=== PATIENT | female | born 1985 | race African-American/Black ===

== ENCOUNTER 2017-07-23 12:43 | Emergency (ER) | payer SELFPAY ==
[2017-07-23 12:53] VITALS: BP 166/98; BMI 52.8
--- NOTE | 2017-07-23 13:03 | DR.TOOTHHP ---
HPI - Time Seen Time seen: 13:20 - Primary Care Physician Primary Care Physician: NFD - Complaints Chief Complaint Doctors Comments: Patient admits to back pain with out history of trauma. Denies sudden moves. Dental pain for three days. Chief Complaint:: PT C/O TOOTHACHE AND SWELLING TO THE LEFT SIDE OF HER FACE AND A STABBING BACK PAIN". Self Treatment fo Chief Complaint: MOTRIN, PCN - Source History Provided: Patient - Mode of Arrival Mode of Arrival: Ambulatory - Timing Onset of Chief Complaint: 07/15/17 PMH - PMH Past Medical History: No Past Surgical History: Yes Past Surgical History Comment: TUBAL - Family History History of Family Medical Conditions: No - Social History Does patient currently use any type of tobacco product: No Have you used tobacco products in the last 12 months: No Type of Tobacco Use: None Does any household member use tobacco: No Alcohol Use: None Do you use any recreational Drugs:: No Lives With: Family Lives Where: Home - infectious screening In the last 2 months have you had wt loss of >10#?: NO Have you had fever, night sweats or hemotysis?: No Have you traveled outside the country in the last 6 months?: No Isolation: Standard ROS - Review of Systems Eyes: No Symptoms Reported ENTM: No Symptoms Reported Respiratoy: No Symptoms Reported Cardiovascular: No Symptoms Reported Gastrointestinal/Abdominal: No Symptoms Reported Genitourinary: No Symptoms Reported Neurological: No Symptoms Reported Musculoskeletal: No Symptoms Reported Integumentary: No Symptoms Reported Hematologic/Lymphatic: No Symptoms Reported Psychiatric: No Symptoms Reported All Other Systems: Reviewed and Negative PE - Vital Signs Vitals: Temperature 98.5 F Pulse Rate 78 Respiratory Rate 22 Blood Pressure 166/98 O2 Sat by Pulse Oximetry 95 - General Limitations: No Limitations General Appearance: Alert, Other (left cheek swollen) - Head Head Exam: Normal Inspection, Atraumatic - Eyes Eye exam: Normal Appearance, PERRL, EOMI - ENT ENT Exam: Normal Exam (#18,19) External Ear Exam: Normal External Inspection TM/Canal Exam: Bilateral Normal Nose Exam: Normal Nose Exam Mouth Exam: Normal Inspection Teeth Exam: Normal Inspection Throat Exam: Normal Inspection - Neck Neck Exam: Normal Inspection - Chest Chest Inspection: Normal Inspection - Respiratory Respiratory Exam: Normal Lung Sounds Bilat Respiratory Exam: Bilateral Clear to Auscultation - Cardiovascular Cardiovascular Exam: Regular Rate, Normal Rhythm - Abdominal Exam Abdominal Exam: Normal Inspection, Normal Bowel Sounds Abdominal Tenderness: negative: RUQ, RLQ, LUQ, LLQ, Epigastrium, Suprapubic, Diffuse, Mild, Moderate, Severe, Other - Extremities Extremities Exam: Normal Inspection, Full ROM - Back Back Exam: Normal Inspection, Full ROM - Neurologic Neurological Exam: Alert, Oriented X3, CN II-XII Intact - Psychiatric Psychiatric Exam: Normal Affect - Skin Skin Exam: Warm, Dry, Intact - Diagnosis Discharge Problem: Abscess, dental - Discharge Plan Condition: Stable - Follow ups/Referrals Follow ups/Referrals: NFD,None [Primary Care Provider] - 3 days - Instructions
[2017-07-23] MEDS ORDERED: TORADOL 60 MG VIAL IM ONE (13:25)
[2017-07-23] MEDS ORDERED: TORADOL 60 MG VIAL ONE ×2 (13:27→13:30)
== END 2017-07-23 13:41 | disposition home or self-care (01) ==
LOC: ER 12:55
DX: K04.7 Periapical abscess without sinus (principal)
CPT/HCPCS: 96372; 99282; J1885

== ENCOUNTER 2017-12-09 23:33 | Emergency (ER) | payer OTHER ==
[2017-12-09 23:39] VITALS: BMI 51.0
--- NOTE | 2017-12-10 00:04 | DR.GENAD ---
HPI - PCP Primary Care Physician: NFD - HPI Comment HPI Comment: Pt c/o generalized body pain going on 'for months', comes and goes. Increased pt left side of abd more recently. No fevers, no hx trauma - Complaint/Symptoms Chief Complaint:: "PAIN THROUGHOUT MY BODY AND SENSITIVE TO TOUCH ON LEFT SIDE. ". DENIES ANY VOMITING OR DIARRHEA. - Nurses notes reviewed Nurses Notes Review: Yes - Source History Provided: Patient - Mode of Arrival Mode of Arrival: Ambulatory - Timing Onset of Chief Complaint: 12/09/17 Came on: Gradually - Duration Duration: Since Onset PMH - PMH Past Medical History: No (pt denies sig contribPMH) Past Surgical History: Yes Surgical History: - Family History History of Family Medical Conditions: No - Social History Does patient currently use any type of tobacco product: No Have you used tobacco products in the last 12 months: No Type of Tobacco Use: Cigarettes Alcohol Use: None Do you use any recreational Drugs:: No Lives With: Family Lives Where: Home - infectious screening Have you traveled outside the country in the last 6 months?: No Isolation: Standard ROS - Review of Systems Constitutional: See HPI, Malaise, Other ('all over' body pain) Eyes: No Symptoms Reported ENTM: No Symptoms Reported Respiratoy: No Symptoms Reported Cardiovascular: No Symptoms Reported Gastrointestinal/Abdominal: Abdominal Pain Genitourinary: No Symptoms Reported Neurological: No Symptoms Reported Integumentary: No Symptoms Reported Hematologic/Lymphatic: No Symptoms Reported Endocrine: No Symptoms Reported Psychiatric: No Symptoms Reported All Other Systems: Reviewed and Negative PE - Vital Signs Vitals: Temperature 97.3 F Pulse Rate [Left] 89 Pulse Rate 99 Respiratory Rate 16 Blood Pressure [Left Arm] 139/87 Blood Pressure 130/78 O2 Sat by Pulse Oximetry 97 - General Limitations: No Limitations General Appearance: Alert, In No Apparent Distress - Head Head Exam: Normal Inspection - Eyes Eye exam: Normal Appearance - ENT ENT Exam: Normal Exam, Normal Oropharynx Throat Exam: Normal Inspection - Neck Neck Exam: Normal Inspection, Full ROM, Trachea Midline - Chest Chest Inspection: Normal Inspection, Symmetric Chest Wall Rise - Respiratory Respiratory Exam: Normal Lung Sounds Bilat Respiratory Exam: Bilateral Clear to Auscultation - Cardiovascular Cardiovascular Exam: Regular Rate, Normal Rhythm, Normal Heart Sounds - Abdominal Exam Abdominal Exam: Normal Inspection, Normal Bowel Sounds, Soft, Tenderness. negative: Guarding, Rebound, Rigidity Abdominal Tenderness: LLQ - Extremities Extremities Exam: Normal Inspection, Full ROM - Neurologic Neurological Exam: Alert, Oriented X3 - Psychiatric Psychiatric Exam: Normal Affect, Normal Mood - Skin Skin Exam: Warm, Dry, Intact ROR - Labs Reviewed Laboratory Results Reviewed?: Yes (ESR 18, labs reviewed w/pt) Result Diagrams: 12/10/17 00:41 03 00:41 Laboratory: WBC 4.8 X10^3/uL (3.6-10.0) 12/10/17 00:41 RBC 4.56 X10^6/uL (3.5-5.4) 12/10/17 00:41 Hgb 12.8 g/dL (12.0-16.0) 12/10/17 00:41 Hct 38.1 % (36.0-47.0) 12/10/17 00:41 MCV 83.5 fL (80.0-100.0) 12/10/17 00:41 MCH 27.9 pg (27.0-34.0) 12/10/17 00:41 MCHC 33.5 g/dL (33.0-35.0) 12/10/17 00:41 RDW 14.8 % (11.6-16.5) 12/10/17 00:41 Plt Count 224 X10^3/uL (150.0-450.0) 12/10/17 00:41 MPV 9.9 fL (7.4-11.0) 12/10/17 00:41 Neut % (Auto) 35.9 % (42.0-75.0) L 12/10/17 00:41 Lymph % (Auto) 47.2 % (21.0-51.0) 12/10/17 00:41 [place] % (Auto) 12.3 % (0.0-13.0) 12/10/17 00:41 Eos % (Auto) 4.0 % (0.9-2.9) H 12/10/17 00:41 Baso % (Auto) 0.6 % (0.2-1.0) 12/10/17 00:41 Neut # (Auto) 1.7 x10^3/uL (2.2-4.8) L 12/10/17 00:41 Lymph # (Auto) 2.3 X10^3/uL (1.3-2.9) 12/10/17 00:41 [place] # (Auto) 0.6 x10^3/uL (0.3-0.8) 12/10/17 00:41 Eos # (Auto) 0.2 x10^3/uL (0.0-0.2) 12/10/17 00:41 Baso # (Auto) 0.0 X10^3/uL (0.0-0.1) 12/10/17 00:41 Absolute Nucleated RBC 0.1 /100WBC 12/10/17 00:41 ESR 18 MM/HOUR (0-20) 12/10/17 00:41 Sodium 141 mmol/L (136-145) 12/10/17 00:41 Corrected Sodium TNP 12/10/17 00:41 Potassium 3.9 mmol/L (3.5-5.1) 12/10/17 00:41 Chloride 107 mmol/L (98-107) 12/10/17 00:41 Carbon Dioxide 25.2 mmol/L (21-32) 12/10/17 00:41 BUN 10 mg/dL (7-18) 12/10/17 00:41 Creatinine 0.84 mg/dL (0.55-1.02) 12/10/17 00:41 Est GFR (MDRD) Af Amer > 60 (>60) 12/10/17 00:41 Est GFR (MDRD) Non-Af > 60 (>60) 12/10/17 00:41 Glucose 108 mg/dL (65-99) H 12/10/17 00:41 Calcium 8.2 mg/dL (8.5-10.1) L 12/10/17 00:41 Corrected Calcium TNP 12/10/17 00:41 Total Bilirubin 0.30 mg/dL (0.2-1.0) 12/10/17 00:41 AST 28 Units/L (15-37) 12/10/17 00:41 ALT 42 Units/L (12-78) 12/10/17 00:41 Alkaline Phosphatase 53 Units/L (46-116) 12/10/17 00:41 Total Protein 8.4 g/dL (6.4-8.2) H 12/10/17 00:41 Albumin 3.5 g/dL (3.4-5.0) 12/10/17 00:41 Globulin 4.9 g/dL (2.5-4.5) H 12/10/17 00:41 Albumin/Globulin Ratio 0.7 Ratio (1.1-2.1) L 12/10/17 00:41 Amylase 84 Units/L (25-115) 12/10/17 00:41 Lipase 142 Units/L (73-393) 12/10/17 00:41 Specimen Type Clean catch urine 12/10/17 00:24 Urine Color Yellow (YELLOW) 12/10/17 00:24 Urine Appearance Clear (CLEAR) 12/10/17 00:24 Urine pH 5.0 (5.0 - 8.0) 12/10/17 00:24 Ur Specific Grandy 1.030 (1.000-1.030) 12/10/17 00:24 Urine Protein 2+ (NEGATIVE) 12/10/17 00:24 Urine Glucose (UA) Negative (NEGATIVE) 12/10/17 00:24 Urine Ketones 1+ (NEGATIVE) 12/10/17 00:24 Urine Occult Blood 4+ (NEGATIVE) 12/10/17 00:24 Urine Nitrite Negative (NEGATIVE) 12/10/17 00:24 Urine Bilirubin Negative (NEGATIVE) 12/10/17 00:24 Urine Urobilinogen 1+ (NORMAL) 12/10/17 00:24 Ur Leukocyte Esterase 1+ (NEGATIVE) 12/10/17 00:24 Urine RBC 10-20 /HPF (NONE SEEN) 12/10/17 00:24 Urine WBC 1-4 /HPF (NONE SEEN) 12/10/17 00:24 Ur Squamous Epith Cells Many /HPF (NEGATIVE) 12/10/17 00:24 Urine Bacteria Trace /HPF (NEGATIVE) 12/10/17 00:24 Urine Mucus Moderate /HPF (NEGATIVE) 12/10/17 00:24 Ur Culture Indicated? No/not indicated 12/10/17 00:24 - XRAY XRAY Interpreted by: Radiologist XRAY Findings: AAS with constipation - Diagnosis Discharge Problem: Generalized pain Constipation Qualifiers: Constipation type: unspecified constipation type Qualified Code(s): K59.00 - Constipation, unspecified - Discharge Plan Disposition: HOME, SELF-CARE Condition: Stable Prescriptions: Ketorolac Tromethamine [Toradol Tab] 10 mg PO Q8H PRN #12 tab PRN Reason: Pain - Follow ups/Referrals Follow ups/Referrals: NFD,None [Primary Care Provider] - 3 days - Instructions Additional Notes - Additional Notes Additional Notes: extended d/w pt re: labs and Xray findings. Will give mag citrate x 1 bottle to pt w/inst, asked pt to f/u PCP re: autoimmune and other disorders better investigated by PCP.
[2017-12-10 00:39] LABS: BILIRUBIN,URINE NEGATIVE (NEGATIVE); BLOOD/HEMOGLOBIN,URINE 4+ (NEGATIVE); GLUCOSE, URINE NEGATIVE (NEGATIVE); KETONES,URINE 1+ (NEGATIVE); LEUKOCYTE ESTERASE ,URINE 1+ (NEGATIVE); NITRITES,URINE NEGATIVE (NEGATIVE); PROTEIN,URINE 2+ (NEGATIVE); UROBILINOGEN,URINE 1+ (NORMAL)
[2017-12-10 00:48] LABS: APPEARANCE,URINE CLEAR (CLEAR); BACTERIA,URINE TRACE /HPF (NEGATIVE); COLOR,URINE YELLOW (YELLOW); MUCUS,URINE MODERATE /HPF (NEGATIVE); SQUAMOUS EPITHELIAL CELL,UR MANY /HPF (NEGATIVE)
--- NOTE | 2017-12-10 00:55 | RAD ---
Acute abdominal series, four views Indication: Left-sided abdominal pain Comparison: None Findings: The heart is normal in size. No focal consolidation, significant effusion or pneumothorax i s identified. Large stool burden is present throughout the colon. The visualized bowel gas pattern is otherwise non obstructive. No free air or pneumatosis is identified. No pathologic calcifications are seen. Imaged osseous structures are intact. Impression: No acute cardiopulmonary abnormality. Findings suggestive for constipation. Otherwise, no acute abdominal abnormality. Reported By:
[2017-12-10 01:00] LABS: BASOPHILS % (AUTO) 0.6 % (0.2-1.0); EOSINOPHILS # (AUTO) 0.2 x10^3/uL (0.0-0.2); HEMATOCRIT 38.1 % (36.0-47.0); HEMOGLOBIN 12.8 g/dL (12.0-16.0); LYMPHOCYTES # (AUTO) 2.3 X10^3/uL (1.3-2.9); LYMPHOCYTES % (AUTO) 47.2 % (21.0-51.0); MEAN CORPUSCULAR HEMOGLOBIN 27.9 pg (27.0-34.0); MEAN CORPUSCULAR HGB CONC 33.5 g/dL (33.0-35.0); MEAN CORPUSCULAR VOLUME 83.5 fL (80.0-100.0); MEAN PLATELET VOLUME 9.9 fL (7.4-11.0); MONOCYTES # (AUTO) 0.6 x10^3/uL (0.3-0.8); MONOCYTES % (AUTO) 12.3 % (0.0-13.0); NEUTROPHILS # (AUTO) 1.7 x10^3/uL (2.2-4.8); NEUTROPHILS % (AUTO) 35.9 % (42.0-75.0); PLATELET COUNT 224 X10^3/uL (150.0-450.0); RED BLOOD COUNT 4.56 X10^6/uL (3.5-5.4); RED CELL DISTRIBUTION WIDTH 14.8 % (11.6-16.5); WHITE BLOOD COUNT 4.8 X10^3/uL (3.6-10.0)
[2017-12-10] MEDS ORDERED: TORADOL 30 MG VIAL IM ONE (01:39)
[2017-12-10 01:43] LABS: ERYTHROCYTE SEDIMENTATION RATE 18 MM/HOUR (0-20)
[2017-12-10 01:50] LABS: ALANINE AMINOTRANSFERASE 42 Units/L (12-78); ALBUMIN 3.5 g/dL (3.4-5.0); ALKALINE PHOSPHATASE 53 Units/L (46-116); AMYLASE 84 Units/L (25-115); ASPARTATE AMINO TRANSFERASE 28 Units/L (15-37); BLOOD UREA NITROGEN 10 mg/dL (7-18); CALCIUM 8.2 mg/dL (8.5-10.1); CARBON DIOXIDE 25.2 mmol/L (21-32); CHLORIDE 107 mmol/L (98-107); CREATININE 0.84 mg/dL (0.55-1.02); LIPASE 142 Units/L (73-393); SODIUM 141 mmol/L (136-145); TOTAL PROTEIN 8.4 g/dL (6.4-8.2); eGFR BLACK RACES > 60 (>60); eGFR NON BLACK RACES > 60 (>60)
[2017-12-10] MEDS ORDERED: TORADOL 60 MG VIAL ONE (01:57)
[2017-12-10 02:03] VITALS: BP 139/87
[2017-12-10] MEDS ORDERED: CITROMA PO ONE (02:26)
[2017-12-10] MEDS ORDERED: CITROMA ONE (02:27)
== END 2017-12-10 02:29 | disposition home or self-care (01) ==
LOC: ER 23:33
DX: K59.09 Other constipation (principal); R52 Pain, unspecified
CPT/HCPCS: 36415; 74022; 80053; 81001; 82150; 83690; 85025; 85652; 96372; 99282; 99283; A4216; J1885

== ENCOUNTER 2017-12-31 08:48 | Emergency (ER) | payer OTHER ==
[2017-12-31 08:53] VITALS: BP 138/79; BMI 50.6
--- NOTE | 2017-12-31 09:02 | DR.TOOTHHP ---
HPI - Time Seen Time seen: 09:00 - Primary Care Physician Primary Care Physician: PITO - HPI Comment HPI Comment: WORSE THIS AM. RIGHT JAW SWOLLEN AND RT EAR PAIN WELL. HAD FEVER AT HOME. - Complaints Chief Complaint Doctors Comments: TOOTHACHE, RT EARACHE AND HEADACHE TIMES 3 DAYS. Chief Complaint:: PATIENT STATED THAT SHE IS HAVING A TOOTHACHE SINCE SUNDAY ON THE RIGHT SIDE TOP AND BOTTOM AND EAR HURT. SHE IS ALSO C/O OF A HEADACHE SINCE SUNDAY. - Reviewed Nurses Notes Reviewed: Yes - Source History Provided: Patient - Mode of Arrival Mode of Arrival: Ambulatory - Timing Onset of Chief Complaint: 12/28/17 - Severity Pain Severity: Moderate - Location Location:: Right, Lower, Tooth, Gums - Context Onset:: Spontaneous, Previous Caries History Of: None - Modifying Factors Worsens:: Chewing Improves:: Analagesics havn't helped - Associated Signs and Symptoms Associated signs and symptoms: Earache, Other (HEADACHE) PMH - PMH Past Medical History: No Past Surgical History: Yes Surgical History: - Family History History of Family Medical Conditions: No - Social History Does patient currently use any type of tobacco product: No Have you used tobacco products in the last 12 months: No Type of Tobacco Use: None Does any household member use tobacco: No Alcohol Use: None Do you use any recreational Drugs:: No Lives With: Family Lives Where: Home - infectious screening In the last 2 months have you had wt loss of >10#?: NO Have you had fever, night sweats or hemotysis?: No Have you traveled outside the country in the last 6 months?: No Isolation: Standard ROS - Review of Systems ENTM: Ear Pain. negative: Nose Pain, Nose Congestion, Loose Teeth (RIGHT LOWER MOLAR PAINFULL), Throat Pain Respiratoy: No Symptoms Reported Cardiovascular: No Symptoms Reported Gastrointestinal/Abdominal: No Symptoms Reported Genitourinary: No Symptoms Reported Neurological: No Symptoms Reported Musculoskeletal: No Symptoms Reported Integumentary: No Symptoms Reported Hematologic/Lymphatic: No Symptoms Reported Endocrine: No Symptoms Reported All Other Systems: Reviewed and Negative PE - Vital Signs Vitals: Temperature 97.5 F Pulse Rate 91 Respiratory Rate 20 Blood Pressure [Left Arm] 139/87 Blood Pressure 138/79 O2 Sat by Pulse Oximetry 99 - General Limitations: No Limitations General Appearance: Alert - Head Head Exam: Normal Inspection - Eyes Eye exam: Normal Appearance - ENT ENT Exam: Normal External Ear Exam External Ear Exam: Normal External Inspection TM/Canal Exam: Bilateral Normal Nose Exam: Normal Nose Exam Mouth Exam: Normal Inspection Teeth Exam: Dental Caries, Gingival Swelling (LT UPPER CANINE) - Neck Neck Exam: Normal Inspection - Chest Chest Inspection: Normal Inspection - Respiratory Respiratory Exam: Normal Lung Sounds Bilat Respiratory Exam: Bilateral Clear to Auscultation - Cardiovascular Cardiovascular Exam: Normal Heart Sounds - Abdominal Exam Abdominal Exam: Normal Inspection - Extremities Extremities Exam: Normal Inspection - Back Back Exam: Normal Inspection - Neurologic Neurological Exam: Alert - Psychiatric Psychiatric Exam: Normal Affect, Normal Mood - Skin Skin Exam: Normal Color MDM - Differential diagnosis Differential Diagnosis: Other (GINGIVITIS, DENTAL PAIN) Course - Treatment Treatment: SEE ORDERS. IM MEDS IN ED. - Education/Counseling Education/Counseling: Patient, Education Educated On: Treatment, Diagnosis, Needs for Follow Up - Diagnosis Discharge Problem: Toothache, Gingivitis, Dental abscess, Mandibular swelling - Discharge Plan Disposition: 01 HOME, SELF-CARE Condition: Stable Prescriptions: Amoxicillin [Amoxil 875 mg] 875 mg PO Q12H #20 tab Ibuprofen [MOTRIN TAB 800 MG *] 800 mg PO Q8H PRN #30 tab PRN Reason: Pain/Inflammation Methylprednisolone Dosepak 4Mg [MEDROL DOSEPAK (4 mg tab x 21)] 1 nigel PO ONCE # 1 nigel - Follow ups/Referrals Follow ups/Referrals: NFD,None [Primary Care Provider] - 2 days JOSE MARIA LEES [STAFF PHYSICIAN] - 2 days - Instructions Instructions: Gingivitis, [id number], Dental Abscess, [id number] Additional Instructions: RETURN TO ED IF WORSE. FOLLOW UP WITH DENTIST OF CHOICE THIS WEEK.
[2017-12-31] MEDS ORDERED: ROCEPHIN VIAL 1 GM IM ONE (09:09)
[2017-12-31] MEDS ORDERED: TORADOL 60 MG VIAL IM ONE (09:10)
[2017-12-31] MEDS ORDERED: TORADOL 60 MG VIAL ONE (09:12)
[2017-12-31] MEDS ORDERED: ROCEPHIN VIAL 1 GM ONE (09:13)
[2017-12-31] MEDS ORDERED: XYLOCAINE 1 % (PLAIN) ONE (09:15)
== END 2017-12-31 09:56 | disposition home or self-care (01) ==
LOC: ER 08:55
DX: K04.7 Periapical abscess without sinus (principal); K05.10 Chronic gingivitis, plaque induced; R22.0 Localized swelling, mass and lump, head; K08.89 Other specified disorders of teeth and supporting structures
CPT/HCPCS: 96372; 99282; J0696; J1885; J2001